=== PATIENT | female | born 1970 | race American Indian/Alaskan Native ===

== ENCOUNTER 2018-09-11 19:36 | Emergency (ER) | payer OTHER ==
--- NOTE | 2018-09-11 19:48 | Emergency Department Report ---
Chief Complaint: Urogenital-Female Stated Complaint: LEFT SIDE GROIN PAIN Time Seen by Provider: 09/11/18 19:43 - HPI History of Present Illness: Pt is c/o nodule in the left lower abdomen that began last night describes the pain as a sharp, stabbing no n/v, fever, no urinary sx never had pain previously she said that 4 weeks ago she saw her PCP and that her "liver enzymes were elevated" PMHx of DM and gastric bypass hx of total hysterectomy MSE screening note: Focused history and physical exam performed. Due to findings the following was ordered:abdominal pain protocol ED Disposition for MSE Condition: Stable
[2018-09-11 20:21] LABS: Basophils % (Auto) 0.5 % (0.0-1.8); Eosinophils # (Auto) 0.2 K/mm3 (0.0-0.4); Eosinophils % (Auto) 2.3 % (0.0-4.3); Hematocrit 36.1 % (30.3-42.9); Hemoglobin 11.8 gm/dl (10.1-14.3); Lymphocytes # (Auto) 3.4 K/mm3 (1.2-5.4); Lymphocytes % (Auto) 51.9 % (13.4-35.0); Mean Corpuscular HGB Conc 33 % (30-34); Mean Corpuscular Volume 72 fl (79-97); Monocytes # (Auto) 0.4 K/mm3 (0.0-0.8); Monocytes % (Auto) 6.5 % (0.0-7.3); Platelet Count 351 K/mm3 (140-440); Red Blood Count 4.99 M/mm3 (3.65-5.03); Red Cell Distribution Width 15.3 % (13.2-15.2)
[2018-09-11 21:06] LABS: Alanine Aminotransferase 42 units/L (7-56); Albumin 4.1 g/dL (3.9-5); BUN/Creatinine Ratio 28; Blood Urea Nitrogen 11 mg/dL (7-17); Calcium 8.9 mg/dL (8.4-10.2); Hemolysis Index 5
--- NOTE | 2018-09-11 22:37 | Cat Scan Report ---
PROCEDURE: CT ABDOMEN PELVIS W CON TECHNIQUE: Computerized axial tomography of the abdomen and pelvis was performed after the IV inject ion of iodinated nonionic contrast. Coronal and sagittal reconstruction was also performed. CONTRAST: Intravenous contrast given CT DOSE LENGTH PRODUCT: 1574.06 mGycm HISTORY: LLQ abd pain, no diarrhea COMPARISONS: None . FINDINGS: In the left adnexa, there is a 4.7 x 5.4 x 4.3 cm cystic focus likely in the left ovary. Within the abdomen, the liver, spleen, pancreas, adrenal glands, and kidneys are unremarkable. Gallbl adder has been surgically removed. No evidence for retroperitoneal or pelvic lymphadenopathy is seen. The cecum is located near midline. The appendix is normal along midline. The bowel loops have normal caliber. No soft tissue mass, fluid collection, inflammatory change, or free air is seen within the a bdomen or pelvis. Within the pelvis, the bladder is unremarkable. The uterus has been surgically removed.. No evidence for mass or lymphadenopathy is seen in the pelvis. Images through the upper abdomen include the lung bases which are expanded and clear. Bony structures show moderate disc space narrowing at L5-S1. IMPRESSION: 1. Left adnexal mass, likely a cyst of the left ovary 2. Otherwise, no acute intra-abdominal process noted This document is electronically signed by Viki Jameson MD., September 11 2018 10:35:28 PM ET
[2018-09-11] MEDS ORDERED: TORADOL IV STA (23:00)
--- NOTE | 2018-09-11 23:13 | Emergency Department Report ---
ED Abdominal Pain HPI - General Chief Complaint: Urogenital-Female Stated Complaint: LEFT SIDE GROIN PAIN Time Seen by Provider: 09/11/18 19:43 Source: patient Mode of arrival: Ambulatory Limitations: No Limitations - History of Present Illness Initial Comments: 48-year-old -[place] female presents with department complaining of pain to the left lower abdominal quadrant for the last 2 days as dull and throbbing. She noticed not to that region. She has gastric bypass with Dr. Orantes in March 2018. Contacted his office to let him know about advised to come to the emergency department dictations. Reports no diarrhea or constipation, no fever, chills, sweats, dysuria, hematuria, nausea or vomiting. MD Complaint: abdominal pain -: Gradual Location: diffuse Radiation: none Migration to: no migration Severity: mild Severity scale (0 -10): 7 Quality: dull Consistency: constant Improves With: nothing Worsens With: nothing Associated Symptoms: denies other symptoms. denies: vomiting, diarrhea, constipation, dysuria, hematemesis, hematuria, anorexia, syncope - Related Data Home Medications Medication Instructions Recorded Confirmed Last Taken Acyclovir 400 mg PO DAILY 12/31/14 03/31/18 04/04/18 Esomeprazole Magnesium [Nexium 20 mg PO DAILY 03/29/18 04/05/18 04/05/18 05:00 24Hr] Gabapentin [Neurontin] 300 tab PO QHS 03/29/18 04/05/18 04/04/18 Pravastatin [Pravachol] 20 mg PO QHS 03/29/18 03/31/18 04/04/18 Sitagliptin Phosphate [Januvia] 100 mg PO DAILY 03/29/18 03/31/18 04/04/18 Cider Vinegar [Apple Cider Vinegar] 300 mg PO DAILY 03/31/18 03/31/18 03/29/18 Cinnamon Bark [Cinnamon] 500 mg PO DAILY 03/31/18 03/31/18 03/29/18 Milk Thistle 150 mg PO DAILY 03/31/18 03/31/18 03/29/18 Multivitamin/Iron/Folic Acid 1 each PO DAILY 03/31/18 03/31/18 04/04/18 [Centrum Women Tablet] metFORMIN [Glucophage] 500 mg PO BID 03/31/18 03/31/18 04/04/18 Previous Rx's Medication Instructions Recorded Last Taken Type Ketorolac [Toradol] 10 mg PO Q6H PRN #14 tablet 09/11/18 Unknown Rx Allergies Allergy/AdvReac Type Severity Reaction Status Date / Time No Known Allergies Allergy Verified 03/31/18 16:30 ED Review of Systems ROS: Stated complaint: LEFT SIDE GROIN PAIN Other details as noted in HPI Constitutional: denies: chills, fever Eyes: denies: eye pain, eye discharge, vision change ENT: denies: ear pain, throat pain Respiratory: denies: cough, shortness of breath, wheezing Cardiovascular: denies: chest pain, palpitations Endocrine: no symptoms reported Gastrointestinal: denies: abdominal pain, nausea, diarrhea Genitourinary: denies: urgency, dysuria, discharge Musculoskeletal: denies: back pain, joint swelling, arthralgia Skin: denies: rash, lesions Neurological: denies: headache, weakness, paresthesias Psychiatric: denies: anxiety, depression Hematological/Lymphatic: denies: easy bleeding, easy bruising ED Past Medical Hx - Past Medical History Previous Medical History?: Yes Hx Heart Attack/AMI: No Hx Congestive Heart Failure: No Hx Diabetes: Yes Hx GERD: Yes Hx Liver Disease: No Hx Seizures: No Hx COPD: No (denies hx however PFTs on chart show moderate obstruction) Additional medical history: elevated LFTs - Surgical History Past Surgical History?: Yes Hx Cholecystectomy: Yes Additional Surgical History: gastric bypass, hysterectomy - Social History Smoking Status: Never Smoker Substance Use Type: None - Medications Home Medications: Home Medications Medication Instructions Recorded Confirmed Last Taken Type Acyclovir 400 mg PO DAILY 12/31/14 03/31/18 04/04/18 History Esomeprazole Magnesium [Nexium 20 mg PO DAILY 03/29/18 04/05/18 04/05/18 05:00 History 24Hr] Gabapentin [Neurontin] 300 tab PO QHS 03/29/18 04/05/18 04/04/18 History Pravastatin [Pravachol] 20 mg PO QHS 03/29/18 03/31/18 04/04/18 History Sitagliptin Phosphate [Januvia] 100 mg PO DAILY 03/29/18 03/31/18 04/04/18 History Cider Vinegar [Apple Cider Vinegar] 300 mg PO DAILY 03/31/18 03/31/18 03/29/18 History Cinnamon Bark [Cinnamon] 500 mg PO DAILY 03/31/18 03/31/18 03/29/18 History Milk Thistle 150 mg PO DAILY 03/31/18 03/31/18 03/29/18 History Multivitamin/Iron/Folic Acid 1 each PO DAILY 03/31/18 03/31/18 04/04/18 History [Centrum Women Tablet] metFORMIN [Glucophage] 500 mg PO BID 03/31/18 03/31/18 04/04/18 History Ketorolac [Toradol] 10 mg PO Q6H PRN #14 tablet 09/11/18 Unknown Rx ED Physical Exam - General Limitations: No Limitations General appearance: alert, in no apparent distress - Head Head exam: Present: atraumatic, normocephalic - Eye Eye exam: Present: normal appearance, PERRL, EOMI Pupils: Present: normal accommodation - ENT ENT exam: Present: normal exam, mucous membranes moist - Neck Neck exam: Present: normal inspection - Respiratory Respiratory exam: Present: normal lung sounds bilaterally, chest wall tenderness. Absent: respiratory distress, wheezes, rales, accessory muscle use, decreased breath sounds - Cardiovascular Cardiovascular Exam: Present: regular rate, normal rhythm. Absent: systolic murmur, diastolic murmur, rubs, gallop - GI/Abdominal GI/Abdominal exam: Present: soft, tenderness (left lower quadrant. No mass appreciated. Abdomen is soft. Bowel sounds of all positive. No Law sign, no Rovsing, no Albright Bonds, no [place] sign), normal bowel sounds. Absent: distended, guarding, hyperactive bowel sounds, hypoactive bowel sounds, organomegaly, mass - Extremities Exam Extremities exam: Present: normal inspection, full ROM, normal capillary refill - Back Exam Back exam: Present: normal inspection, full ROM. Absent: CVA tenderness (R), CVA tenderness (L) - Neurological Exam Neurological exam: Present: alert, oriented X3, CN II-XII intact, normal gait - Psychiatric Psychiatric exam: Present: normal affect, normal mood - Skin Skin exam: Present: warm, dry, intact, normal color. Absent: rash ED Course Vital Signs 09/11/18 19:44 Temperature 98.0 F Pulse Rate 68 Respiratory 18 Rate Blood Pressure 140/60 O2 Sat by Pulse 99 Oximetry ED Medical Decision Making - Lab Data Result diagrams: 09/11/18 20:08 09/11/18 20:08 - Radiology Data Radiology results: report reviewed (ultrasound, CT scan shows a left adnexal cyst) Critical care attestation.: If time is entered above; I have spent that time in minutes in the direct care of this critically ill patient, excluding procedure time. ED Disposition Clinical Impression: Ovarian cyst Disposition: DC- TO HOME OR SELFCARE Is pt being admited?: No Does the pt Need Aspirin: No Condition: Stable Instructions: Ovarian Cyst (ED) Prescriptions: Ketorolac [Toradol] 10 mg PO Q6H PRN #14 tablet PRN Reason: Pain Referrals: JANETT ALVARADO MD [Primary Care Provider] - 3-5 Days [facility] [Provider Group] - 3-5 Days GARCIA FERNANDEZ MD [Staff Physician] - as needed
[2018-09-11 23:47] VITALS: BP 132/72
== END 2018-09-11 23:45 | disposition home or self-care (01) ==
LOC: ED 19:36
DX: N83.202 Unspecified ovarian cyst, left side (principal); E11.9 Type 2 diabetes mellitus without complications; K21.9 Gastro-esophageal reflux disease without esophagitis; Z90.49 Acquired absence of other specified parts of digestive tract
CPT/HCPCS: 36415; 74177; 80053; 83690; 85025; 96374; 99284; J1885; Q9967